=== PATIENT | male | born 1995 | race Caucasian/White ===

== ENCOUNTER 2022-03-21 09:32 | Emergency (ER) | payer OTHER ==
[~2022-03-21] VITALS: Ht 157.5 cm; Wt 75.0 kg
[2022-03-21 10:07] VITALS: BP 116/83
[2022-03-21 10:15] VITALS: BP 126/83
[2022-03-21 10:30] VITALS: BP 119/84
[2022-03-21 10:45] VITALS: BP 123/71
[2022-03-21 11:00] VITALS: BP 113/81
[2022-03-21 11:32] LABS: HEMATOCRIT 48.1 % (39.0-50.0); HEMOGLOBIN 16.7 g/dl (14.0-18.0); IMMATURE GRANULOCYTES 0.1 % (0.0-5.0); MEAN CORPUSCULAR HGB 29.5 pG CALC (26.0-32.0); MEAN CORPUSCULAR HGB CONC 34.7 g/dL CAL (32.0-36.0); NEUT# 6.56 thou/uL (1.82-7.42); RED BLOOD COUNT 5.66 mill/uL (4.70-6.10); RED CELL DISTRI WIDTH 12.9 % (11.5-15.5)
[2022-03-21 11:45] LABS: ALBUMIN 5.2 g/dL (3.2-5.0); ALKALINE PHOSPHATASE 61 u/l (38-126); ANION GAP 17 (6-22 (CALC)); BILIRUBIN, TOTAL 0.9 mg/dL (0.0-1.4); BUN 15 mg/dL (9-20); BUN/CREATININE RATIO 15 (12-20 (CALC)); CARBON DIOXIDE 30 mmol/l (22-30); CHLORIDE 97 mmol/l (95-108); GFR FOR AFR.AMER. > 60 ML/MIN (>=60 (CALC)); GFR OTHER RACES > 60 ML/MIN (>=60 (CALC)); LIPASE 189 u/l (23-300); POTASSIUM 3.9 mmol/l (3.5-5.1); SGOT/AST 23 u/l (17-59); SODIUM 140 mmol/l (137-146); TOTAL PROTEIN 8.3 g/dL (6.3-8.2)
[2022-03-21] MEDS ORDERED: SENNA-S1 TAB PO (13:57)
[2022-03-21] MEDS ORDERED: DICYCLOMINE HCL20 MG PO (13:57)
[2022-03-21 14:23] VITALS: BP 113/81
== END 2022-03-21 14:24 | disposition home or self-care (01) | DRG 392 ==
LOC: ED 09:32
PROVIDERS: Internal Medicine
DX: R10.9 Unspecified abdominal pain (principal)
CPT/HCPCS: Q9967

== ENCOUNTER 2022-04-10 10:17 | Emergency (ER) | payer OTHER ==
[~2022-04-10] VITALS: Ht 157.5 cm; Wt 84.0 kg
[2022-04-10] VITALS (7 sets, daily range): BP systolic 125–145; BP diastolic 78–99
[~2022-04-10 10:17] MED LIST: DICYCLOMINE HCL20 MG PO; SENNA-S1 TAB PO
[2022-04-10 10:59] LABS: BASO% 0.1 % (0-3); EOS% 0.7 % (0-8); HEMOGLOBIN 16.4 g/dl (14.0-18.0); LYMPH% 14.3 % (15-41); MEAN CELL VOLUME 87.6 fL CALC (80.0-100.0); MEAN CORPUSCULAR HGB 28.7 pG CALC (26.0-32.0); MEAN CORPUSCULAR HGB CONC 32.8 g/dL CAL (32.0-36.0); MONO% 5.2 % (2-13); NEUT# 6.54 thou/uL (1.82-7.42); NEUT% 79.7 % (42-76); RED BLOOD COUNT 5.71 mill/uL (4.70-6.10); RED CELL DISTRI WIDTH 13.2 % (11.5-15.5)
[2022-04-10 11:20] LABS: ALBUMIN 4.9 g/dL (3.2-5.0); ALKALINE PHOSPHATASE 61 u/l (38-126); ANION GAP 15 (6-22 (CALC)); BUN 11 mg/dL (9-20); BUN/CREATININE RATIO 11 (12-20 (CALC)); CARBON DIOXIDE 28 mmol/l (22-30); CHLORIDE 101 mmol/l (95-108); GFR FOR AFR.AMER. > 60 ML/MIN (>=60 (CALC)); GFR OTHER RACES > 60 ML/MIN (>=60 (CALC)); LIPASE 93 u/l (23-300); POTASSIUM 3.4 mmol/l (3.5-5.1); SODIUM 140 mmol/l (137-146); TOTAL PROTEIN 8.3 g/dL (6.3-8.2)
[2022-04-10 11:26] LABS: BILIRUBIN, TOTAL 0.5 mg/dL (0.0-1.4); SGOT/AST 41 u/l (17-59)
[2022-04-10 13:12] LABS: URINE BILIRUBIN - DIPSTICK NEGATIVE (NEGATIVE); URINE BLOOD DIPSTICK NEGATIVE (NEGATIVE); URINE COLOR YELLOW; URINE GLUCOSE - DIPSTICK NEGATIVE (NEGATIVE); URINE KETONE NEGATIVE (NEGATIVE); URINE LEUK ESTERASE NEGATIVE (NEGATIVE); URINE PROTEIN - DIPSTICK NEGATIVE (NEG-TRACE)
[2022-04-10 13:15] LABS: URINE NITRITE - DIPSTICK NEGATIVE (Negative)
[2022-04-10] MEDS ORDERED: MIRALAX17 GM PO (13:44)
[2022-04-10] MEDS ORDERED: DULCOLAX10 MG RE (13:45)
== END 2022-04-10 13:57 | disposition home or self-care (01) | DRG 392 ==
LOC: ED 10:17
PROVIDERS: Family Medicine
DX: K59.00 Constipation, unspecified (principal); R11.2 Nausea with vomiting, unspecified
CPT/HCPCS: Q9967

== ENCOUNTER 2022-07-18 21:12 | Emergency (ER) | payer OTHER ==
[~2022-07-18] VITALS: Ht 157.5 cm; Wt 66.6 kg
[2022-07-18] VITALS (7 sets, daily range): BP systolic 97–134; BP diastolic 58–92
[~2022-07-18 21:12] MED LIST changes: +DULCOLAX10 MG RE; +MIRALAX17 GM PO
[2022-07-18 23:02] LABS: BASO% 0.2 % (0-3); EOS% 0.1 % (0-8); HEMATOCRIT 48.2 % (39.0-50.0); HEMOGLOBIN 16.2 g/dl (14.0-18.0); IMMATURE GRANULOCYTES 0.1 % (0.0-5.0); MEAN CELL VOLUME 85.5 fL CALC (80.0-100.0); MEAN CORPUSCULAR HGB 28.7 pG CALC (26.0-32.0); MEAN CORPUSCULAR HGB CONC 33.6 g/dL CAL (32.0-36.0); MONO% 5.8 % (2-13); NEUT# 16.71 thou/uL (1.82-7.42); NEUT% 86.8 % (42-76); RED BLOOD COUNT 5.64 mill/uL (4.70-6.10)
[2022-07-18 23:41] LABS: ALBUMIN 5.5 g/dL (3.2-5.0); ALKALINE PHOSPHATASE 67 u/l (38-126); AMYLASE 75 u/l (30-110); BUN 13 mg/dL (9-20); BUN/CREATININE RATIO 14 (12-20 (CALC)); CARBON DIOXIDE 28 mmol/l (22-30); CHLORIDE 93 mmol/l (95-108); CREATININE 0.9 mg/dL (0.7-1.3); GFR FOR AFR.AMER. > 60 ML/MIN (>=60 (CALC)); GFR OTHER RACES > 60 ML/MIN (>=60 (CALC)); LIPASE 102 u/l (23-300); SGOT/AST 27 u/l (17-59); SODIUM 139 mmol/l (137-146); TOTAL PROTEIN 8.7 g/dL (6.3-8.2)
[2022-07-18 23:43] LABS: ANION GAP 22 (6-22 (CALC)); BILIRUBIN, TOTAL 0.9 mg/dL (0.2-1.3); POTASSIUM 4.1 mmol/l (3.5-5.1)
[2022-07-19] VITALS: BP 100/58
[2022-07-19 00:15] VITALS: BP 98/59
[2022-07-19 00:30] VITALS: BP 95/58
[2022-07-19 03:16] VITALS: BP 95/58
[2022-07-19] MEDS ORDERED: MIRALAX17 GM PO (04:57)
== END 2022-07-19 03:20 | disposition home or self-care (01) | DRG 392 ==
LOC: ED 21:12
PROVIDERS: Emergency Medicine
DX: K59.00 Constipation, unspecified (principal); D72.829 Elevated white blood cell count, unspecified; Z20.822 Contact with and (suspected) exposure to COVID-19; R11.10 Vomiting, unspecified
CPT/HCPCS: Q9967

== ENCOUNTER 2022-07-22 13:36 | Emergency (ER) | payer OTHER ==
[2022-07-22] VITALS (8 sets, daily range): BP systolic 109–143; BP diastolic 64–90
[~2022-07-22] VITALS: Ht 157.5 cm; Wt 64.0 kg
[2022-07-22 15:54] LABS: BASO% 0.2 % (0-3); EOS% 0.6 % (0-8); HEMATOCRIT 50.3 % (39.0-50.0); HEMOGLOBIN 16.7 g/dl (14.0-18.0); IMMATURE GRANULOCYTES 0.2 % (0.0-5.0); LYMPH% 11.6 % (15-41); MEAN CELL VOLUME 86.4 fL CALC (80.0-100.0); MEAN CORPUSCULAR HGB 28.7 pG CALC (26.0-32.0); MEAN CORPUSCULAR HGB CONC 33.2 g/dL CAL (32.0-36.0); MONO% 5.9 % (2-13); NEUT# 9.82 thou/uL (1.82-7.42); NEUT% 81.5 % (42-76); RED BLOOD COUNT 5.82 mill/uL (4.70-6.10); RED CELL DISTRI WIDTH 12.7 % (11.5-15.5)
[2022-07-22 16:14] LABS: ALBUMIN 5.3 g/dL (3.2-5.0); ALKALINE PHOSPHATASE 62 u/l (38-126); ANION GAP 18 (6-22 (CALC)); BILIRUBIN, TOTAL 0.7 mg/dL (0.2-1.3); BUN 17 mg/dL (9-20); BUN/CREATININE RATIO 18 (12-20 (CALC)); CARBON DIOXIDE 30 mmol/l (22-30); CHLORIDE 90 mmol/l (95-108); GFR FOR AFR.AMER. > 60 ML/MIN (>=60 (CALC)); GFR OTHER RACES > 60 ML/MIN (>=60 (CALC)); LIPASE 130 u/l (23-300); POTASSIUM 3.5 mmol/l (3.5-5.1); SGOT/AST 24 u/l (17-59); SODIUM 135 mmol/l (137-146); TOTAL PROTEIN 9.2 g/dL (6.3-8.2)
[2022-07-22] MEDS ORDERED: DULCOLAX10 MG RE (16:42)
== END 2022-07-22 17:38 | disposition home or self-care (01) | DRG 392 ==
LOC: ED 13:36
PROVIDERS: Family Medicine
DX: K59.00 Constipation, unspecified (principal); R11.10 Vomiting, unspecified

== ENCOUNTER 2024-04-24 12:03 | Emergency (ER) | payer SELFPAY ==
[2024-04-24] VITALS (8 sets, daily range): BP systolic 107–129; BP diastolic 63–84
[~2024-04-24] VITALS: Ht 157.5 cm; Wt 77.1 kg
[2024-04-24] MEDS ORDERED: ONDANSETRON HCl 4 MG/2 ML SDV IV ONE (12:30)
[2024-04-24 12:46] LABS: BASO% 0.2 % (0-3); EOS% 0.4 % (0-8); HEMATOCRIT 47.3 % (39.0-50.0); HEMOGLOBIN 16.1 g/dl (14.0-18.0); IMMATURE GRANULOCYTES 0.1 % (0.0-5.0); MEAN CELL VOLUME 85.4 fL CALC (80.0-100.0); MEAN CORPUSCULAR HGB 29.1 pG CALC (26.0-32.0); MONO% 7.8 % (2-13); NEUT# 5.82 thou/uL (1.82-7.42); NEUT% 72.5 % (42-76); RED BLOOD COUNT 5.54 mill/uL (4.70-6.10); RED CELL DISTRI WIDTH 12.4 % (11.5-15.5)
[2024-04-24 13:04] LABS: ALBUMIN 5.3 g/dL (3.2-5.0); POTASSIUM 3.2 mmol/l (3.5-5.1); TOTAL PROTEIN 8.6 g/dL (6.3-8.2)
[2024-04-24 13:06] LABS: BILIRUBIN, TOTAL 0.8 mg/dL (0.2-1.3)
[2024-04-24] MEDS ORDERED: K-TAB20 MEQ PO (14:27)
[2024-04-24] MEDS ORDERED: POTASSIUM CHLORIDE 20 MEQ/TAB PO ONE (14:30)
== END 2024-04-24 14:49 | disposition home or self-care (01) | DRG 93 ==
LOC: ED 12:03
PROVIDERS: Family Medicine
DX: R20.2 Paresthesia of skin (principal); K59.00 Constipation, unspecified
CPT/HCPCS: J2405